=== PATIENT | female | born 1995 | race Hispanic/Latino ===

== ENCOUNTER 2022-09-30 08:45 | Emergency (ER) | payer OTHER, SELFPAY ==
[2022-09-30 09:00] VITALS: BP 128/85; PULSE 79; RESP 18; TEMP 36.6; O2SAT 99
--- NOTE | 2022-09-30 09:08 | ED.NAVMDI ---
HPI - Nausea/Vomiting/Diarrhea General Chief complaint: Nausea/Vomiting/Diarrhea Stated complaint: headache,diarrhea,nausea Time Seen by Provider: 09/30/22 09:00 Source: patient and RN notes reviewed Mode of arrival: ambulatory Limitations: no limitations History of Present Illness HPI Narrative: 6-year-old female presented for complaint of nausea and diarrhea today, she states she had 1 episode of diarrhea today. Endorses 2 nights ago she had a night of heavy drinking on an empty stomach, subsequently had an episode of vomiting and hangover headache yesterday. She has been pushing fluids and has been able to tolerate water. She denies any abdominal pain, hematochezia, melena, urinary complaints, fevers or chills. She denies sick contacts. She is missing work today. LMP 07/25/2022, stating cycles are irregular. Related Data Allergies Allergy/AdvReac Type Severity Reaction Status Date / Time No Known Allergies Allergy Unknown Verified 09/30/22 08:59 Review of Systems Review of Systems: CONSTITUTIONAL: Denies body aches, fever, chills ENT: Denies rhinorrhea, congestion CARDIOVASCULAR: Denies chest pain, palpitations, or edema. RESPIRATORY: Denies cough or dyspnea. GASTROINTESTINAL: Endorses nausea, vomiting, diarrhea. Denies abdominal pain, hematochezia, melena, hematemesis GENITOURINARY: Denies dysuria, hematuria, or CVA tenderness. SKIN: Denies rash, itching, or wounds. MUSCULOSKELETAL: Denies back pain, joint pain, or myalgia. NEUROLOGIC: Denies headache, numbness, tingling, or weakness. All systems reviewed & are unremarkable except as noted in HPI and below [facility] Past Medical History Medical History No pertinent past medical history Comments At time of signature, I have reviewed and agree with nursing past medical, surgical, social and family history unless otherwise noted. Please see nursing chart for further information. There is no relevant family history pertinent to the presenting complaint Exam Narrative: GENERAL: Well-appearing, and in no acute distress. EYES: EOMI. Conjunctivae normal. ENT: Mucous membranes pink and moist. CHEST: No respiratory distress. Clear to auscultation. HEART: Regular rate and rhythm. No murmur appreciated. Normal peripheral pulses. ABDOMEN: abd soft, nondistended, normal active bowel sounds. Nontender abdomen; No guarding, rebound tenderness, asymmetry EXTREMITIES: Normal range of motion. No edema. SKIN: Warm, dry, no rash. Capillary refill normal. Normal skin turgor. NEURO: No focal deficits. Alert and oriented x3. PSYCH: Normal affect. Course Course Emergency Course: Patient is aware of diagnosis, understands and agrees to treatment plan. Anticipatory guidance given. Patient agrees to follow-up as directed and is aware of reasons to seek care at the emergency department. Portions of this record may have been created with voice recognition software Level of Care: Express Care Visit Vital Signs Vital signs: Vital Signs Temperature 97.8 F 09/30/22 09:00 Pulse Rate 79 09/30/22 09:00 Respiratory Rate 18 09/30/22 09:00 Blood Pressure 128/85 09/30/22 09:00 Pulse Oximetry 99 09/30/22 09:00 Oxygen Delivery Room Air 09/30/22 09:00 Temperature 97.8 F 09/30/22 09:00 Pulse Rate 79 09/30/22 09:00 Respiratory Rate 18 09/30/22 09:00 Blood Pressure 128/85 09/30/22 09:00 Pulse Oximetry 99 09/30/22 09:00 Oxygen Delivery Room Air 09/30/22 09:00 MDM - Nausea/Vomiting/Diarrhea MDM Narrative Medical decision making narrative: Result of urine dip (trace blood) and neg preg reviewed with pt. Discussed physical exam findings. Advised supportive measures and signs/symptoms to go to the ER. Pt is appropriate for outpt treatment and f/u. Differential Diagnosis Differential diagnosis: Likely traveler's diarrhea, food poisoning, gastroenteritis, drug-induced nausea an
== END 2022-09-30 09:37 | disposition home or self-care (01) ==
PROVIDERS: Emergency Provider Nurse Practitioner Family
DX: R11.2 Nausea with vomiting, unspecified (principal); R19.7 Diarrhea, unspecified
CPT/HCPCS: 81003; 81025; 99213; G0463